=== PATIENT | female | born 1975 | race Hispanic/Latino ===

== ENCOUNTER 2017-10-30 11:20 | Emergency (ER) | payer MEDICAID ==
[2017-10-30 11:25] VITALS: BP 102/65; PULSE 81; RESP 20; TEMP 98.2; O2SAT 99
[2017-10-30 11:26] VITALS: BMI 19.0
--- NOTE | 2017-10-30 11:54 | ED PDOC ---
HPI: Female Pain Time Seen by Provider: 10/30/17 11:44 Chief Complaint (Nursing): Female Genitourinary Chief Complaint (Provider): vaginal bleeding History Per: Patient (42 y/o female [id number] here with vaginal bleeding approx 6 week here with 2 hours of bleeding concerned for . Patient requests d &D.) Against Medical Advice - AMA Patient Left Against Medical Advice: The patient declines waiting for results/ discussion with first cook wishes to leave the Emergency Department. This action is against my medical advice. This decision was made with informed refusal. The patient was told that type and screen and discussion with first cook necessary. Explanation of the reasons why were discussed. The risks of leaving were explained to the patient and include, but are not limited to, worsening of known or currently unknown conditions, permanent disability and from undiagnosed or untreated conditions. The patient has the capacity to make this informed decision and understands my explanation of the current medical problem and risks of leaving. The patient voluntarily accepts these risks and signed an AMA form documenting our conversation. The patient was given the opportunity to ask questions and reconsider. The patient was encouraged to return to the Emergency Department at any time for further care. 10/31/17 21:41 Past Medical History Reviewed: Historical Data, Nursing Documentation, Vital Signs Vital Signs: Last Vital Signs Temp 98.2 F 10/30/17 11:24 Pulse 81 10/30/17 11:24 Resp 20 10/30/17 11:24 BP 102/65 10/30/17 11:24 Pulse Ox 99 10/30/17 11:24 - Family History Family History: States: No Known Family Hx - Allergies Allergies/Adverse Reactions: Allergies Allergy/AdvReac Type Severity Reaction Status Date / Time No Known Allergies Allergy Verified 10/30/17 11:36 Review of Systems ROS Statement: Except As Marked, All Systems Reviewed And Found Negative Physical Exam - Reviewed Nursing Documentation Reviewed: Yes Vital Signs Reviewed: Yes - Physical Exam Appears: Positive for: Well, Non-toxic, No Acute Distress Head Exam: Positive for: ATRAUMATIC, NORMAL INSPECTION, NORMOCEPHALIC Skin: Positive for: Normal Color, Warm, DRY Eye Exam: Positive for: EOMI, Normal appearance, PERRL ENT: Positive for: Normal ENT Inspection Neck: Positive for: Normal, Painless ROM Cardiovascular/Chest: Positive for: Regular Rate, Rhythm Respiratory: Positive for: CNT, Normal Breath Sounds Gastrointestinal/Abdominal: Positive for: Normal Exam, Soft Back: Positive for: Normal Inspection Extremity: Positive for: Normal ROM Neurologic/Psych: Positive for: Alert, Oriented - Laboratory Results Result Diagrams: 10/30/17 12:11 10/30/17 12:11 - ECG O2 Sat by Pulse Oximetry: 99 - Progress ED Course And Treament: us pelvic: IMPRESSION: No evidence of intrauterine gestation. Slightly heterogeneous endometrium without increased vascularity. Findings may represent early normal/ abnormal with ectopic not excluded. Close clinical follow-up with serial pelvic sonography and serum beta HCG levels recommended. Patient does not want to wait for type and screen results or discussion with ob/ veterinary technician assistant. Will f/u with private first cook. Disposition - Clinical Impression Clinical Impression: Threatened miscarriage in early - Patient ED Disposition Is Patient to be Admitted: No - Disposition Disposition: Against Medical Advice Disposition Time: 13:28 Condition: FAIR
[2017-10-30 12:17] LABS: BASO # 0.1 K/uL (0.0-0.2); BASO % 0.8 % (0.0-2.0); EOS # 0.1 K/uL (0.0-0.7); EOS % 1.8 % (0.0-4.0); HEMOGLOBIN 12.7 g/dL (12.0-16.0); LYMPH # 1.1 K/uL (1.0-4.3); LYMPH % 14.3 % (20.0-40.0); MEAN CELL VOLUME 88.6 fl (81.0-99.0); MEAN CORPUSCULAR HEMOGLOBIN 30.3 pg (27.0-31.0); MEAN CORPUSCULAR HGB CONC 34.2 g/dL (33.0-37.0); MEAN PLATELET VOLUME 9.1 fl (7.2-11.7); MONO # 0.5 K/uL (0.0-0.8); MONO % 6.6 % (0.0-10.0); NEUT % 76.5 % (50.0-75.0); NRBC % 0.1 % (0.0-0.0); RBC 4.2 Mil/uL (3.80-5.20); RED CELL DISTRIBUTION WIDTH 13.5 % (11.5-14.5); WHITE BLOOD COUNT 7.8 K/uL (4.8-10.8)
[2017-10-30 12:33] LABS: BLOOD UREA NITROGEN 10 mg/dl (7-17); CALCIUM 9.2 mg/dL (8.4-10.2); GFR NON-AFRICAN AMERICAN > 60
--- NOTE | 2017-10-30 12:46 | US ---
Date of service: 10/30/2017 PROCEDURE: OB Pelvic Ultrasound HISTORY: vaginal bleeding/6week/ poss miscarriage/poss ecto LMP: 09/17/2017 COMPARISON: None available. FINDINGS: UTERUS: Uterus measures 9.3 x 6.1 x 4.6 cm. Normal in size and appearance. Heterogeneous avascular endometrium measuring 0.7 cm. No intrauterine gestational sac. CERVIX: Long and closed. No cervical abnormality seen. RIGHT OVARY: Measures 3.2 x 2.1 x 1.3 cm. No mass lesion. Normal flow. LEFT OVARY: Not visualized. FREE FLUID: None. OTHER FINDINGS: None. IMPRESSION: No evidence of intrauterine gestation. Slightly heterogeneous endometrium without increased vascularity. Findings may represent early normal/ abnormal with ectopic not excluded. Close clinical follow-up with serial pelvic sonography and serum beta HCG levels recommended.
== END 2017-10-30 13:50 | disposition left against medical advice (07) ==
LOC: H.ER 11:20
DX: O20.0 Threatened abortion (principal); Z3A.01 Less than 8 weeks gestation of pregnancy

== ENCOUNTER 2018-02-05 23:59 | Emergency (ER) | payer MEDICAID ==
[2018-02-05 23:59] VITALS: BMI 19.0
[2018-02-06 00:11] VITALS: RESP 16; O2SAT 100
[2018-02-06 01:19] VITALS: BP 106/58; PULSE 94; TEMP 98.3
--- NOTE | 2018-02-06 01:21 | ED PDOC ---
HPI: Female Pain Time Seen by Provider: 02/06/18 00:16 Chief Complaint (Nursing): Anxiety Chief Complaint (Provider): Anxiety History Per: Patient History/Exam Limitations: no limitations Onset/Duration Of Symptoms: Days (x1) Associated Symptoms: denies: Urinary Symptoms Additional Complaint(s): 42 years old female with , at approximately 16 weeks, presents to ER for evaluation of having anxious feelings recently. Patient states she was nervous and has been having numbness in hands and feet, also worried about varicose veins she's had for yeras. She reports she has been hyperventilating and nervous about preclampsia, as she googled her symptoms and thought she might have it. Patient has no complaints of abdominal pain although she reports exper iencing "dennise luis contractions", which she diagnosed by herself. She denies vaginal bleeding or discharge. PMD: not in area : 8 Para: 2 Past Medical History Reviewed: Historical Data, Nursing Documentation, Vital Signs Vital Signs: Last Vital Signs Temp 98.0 F 02/06/18 00:06 Pulse 105 H 02/06/18 00:06 Resp 16 02/06/18 00:06 BP 103/57 L 02/06/18 00:48 Pulse Ox 100 02/06/18 00:06 - Medical History PMH: No Chronic Diseases - Surgical History Surgical History: No Surg Hx - Family History Family History: States: Unknown Family Hx - Allergies Allergies/Adverse Reactions: Allergies Allergy/AdvReac Type Severity Reaction Status Date / Time No Known Allergies Allergy Verified 02/06/18 00:06 Review of Systems ROS Statement: Except As Marked, All Systems Reviewed And Found Negative Gastrointestinal: Negative for: Abdominal Pain Genitourinary Female: Negative for: Vaginal Discharge, Vaginal Bleeding Psych: Positive for: Anxiety Physical Exam - Reviewed Nursing Documentation Reviewed: Yes Vital Signs Reviewed: Yes - Physical Exam Appears: Positive for: Well, No Acute Distress Head Exam: Positive for: ATRAUMATIC, NORMOCEPHALIC Skin: Positive for: Normal Color, Warm, Dry Eye Exam: Positive for: Normal appearance, EOMI, PERRL Neck: Positive for: Normal, Painless ROM, Supple Cardiovascular/Chest: Positive for: Regular Rate, Rhythm. Negative for: Murmur Respiratory: Positive for: Normal Breath Sounds. Negative for: Wheezing Gastrointestinal/Abdominal: Positive for: Normal Exam, Soft. Negative for: Tenderness (of uterus, gravid), Organomegaly, Mass, Distended, Guarding Back: Positive for: Normal Inspection. Negative for: L CVA Tenderness, R CVA Tenderness Extremity: Positive for: Normal ROM. Negative for: Swelling, Other (Erythema or sign of DVT) Neurologic/Psych: Positive for: Alert, Oriented (x3) - ECG O2 Sat by Pulse Oximetry: 100 (RA) Pulse Ox Interpretation: Normal Medical Decision Making Medical Decision Making: Time: 33 A/P: 42 years old, 16 weeks female presents with anxiety --Patient is no distress --Explained to patient she is too early to be diagnosed with preclampsia and her blood pressure shows she is no risk of developing it at the moment, and also no protein in urine. Patient felt reassured --Advised patient to follow up with her OB and possibly see a therapist [id number] Upon provider reevaluation patient is feeling better, is medically stable, and requires no further treatment in the ED at this time, has already had ultrasound at 12 weeks during this showing IUP. Scribe Attestation: Documented by Linn Braun, acting as a scribe for Connor Mcgee MD. Provider Scribe Attestation: All medical record entries made by the Scribe were at my direction and personally dictated by me. I have reviewed the chart and agree that the record accurately reflects my personal performance of the history, physical exam, medical decision making, and the department course for this patient. I have also personally directed, reviewed, and agree with the discharge instructions and disposition. Disposition - Clinical Impression Clinical Impression: Anxiety - Patient ED Disposition Is Patient to be Admitted: No - Disposition Referrals: Martha Aragon [Outside] Disposition: Routine/Home Disposition Time: 01:14 Condition: IMPROVED Instructions: Anxiety, Adult (DC) Forms: [employer] ([employer])
== END 2018-02-06 01:19 | disposition home or self-care (01) ==
LOC: H.ER 23:59
DX: F41.9 Anxiety disorder, unspecified (principal); Z3A.16 16 weeks gestation of pregnancy